=== PATIENT | female | born 1990 | race Caucasian/White ===

== ENCOUNTER 2017-04-20 01:31 | Emergency (ER) | payer BC ==
[2017-04-20] MEDS: SOD CHLORIDE 0.9% 1,000 ML IV (01:54)
[2017-04-20] MEDS: LORAZEPAM 2 MG INJ IV (01:54)
== END 2017-04-20 05:00 | disposition home or self-care (01) ==
LOC: FTE 01:31
DX: F41.0 Panic disorder [episodic paroxysmal anxiety] (principal); J45.909 Unspecified asthma, uncomplicated
CPT/HCPCS: 96361; 96374; 99284-25

== ENCOUNTER 2017-08-12 12:55 | Emergency (ER) | payer BC ==
[2017-08-12] MEDS: ALBUTEROL 0.5% (NEB) 2.5 MG/0.5 ML AMP INH (13:10)
[2017-08-12] MEDS: IPRATROPIUM (NEB) 0.5 MG/2.5 ML AMP INH (13:10)
[2017-08-12] MEDS: DEXAMETHASONE 10 MG/ML 1 ML INJ PO (13:22)
== END 2017-08-12 14:09 | disposition home or self-care (01) ==
LOC: E/R 12:55
DX: J45.901 Unspecified asthma with (acute) exacerbation (principal)
CPT/HCPCS: 94644; 99283-25